=== PATIENT | male | born 1955 | race Caucasian/White ===

== ENCOUNTER 2020-07-07 11:12 | Outpatient (CLI) | payer MEDICARE, SELFPAY ==
[2020-07-07 11:47] LABS: Basophils # 0.1 10^3/uL (0.0-0.1); Basophils % 0.7 %; Eosinophils # 0.1 10^3/uL (0.0-0.8); Eosinophils % 1.6 %; Hematocrit 43.7 % (42.0-52.0); Hemoglobin 14.8 g/dL (11.7-16.6); Lymphocytes # 1.4 10^3/uL (0.8-4.8); Lymphocytes % 18.3 %; Mean Corpuscular HGB Conc 33.9 g/dL (30.0-36.0); Mean Corpuscular Hemoglobin 31.2 pg (28.0-34.0); Mean Corpuscular Volume 92.2 fL (80-94); Monocytes # 0.8 10^3/uL (0.2-0.9); Monocytes % 9.9 %; Neutrophils # 5.31 10^3/uL (1.8-7.7); Neutrophils % 69.2 %; Nucleated Red Blood Cells % 0 %; Platelet Count 230 10^3/cmm (130-400); Red Blood Count 4.74 10^6/uL (4.1-5.3); Red Cell Distribution Width 12.8 % (12.1-15.1); White Blood Count 7.7 10^3/uL (4.0-10.0)
[2020-07-08 16:28] LABS: Alternaria Alternata (M6) Ige <0.10 kU/L; Alternaria Class 0; Bermuda Class 1; Bermuda Grass (G2) Ige 0.35 kU/L; Cat Dander (E1) Ige <0.10 kU/L; Cat Dander Class 0; Common Ragweed (Short) (W1) Ig 0.13 kU/L; D. Farinae Class 0; Dermatophagoides Class 0; Dermatophagoides Farinae (D2) <0.10 kU/L; Dermatophagoides Pteronyssinus <0.10 kU/L; Dog Dander (E5) Ige <0.10 kU/L; Dog Dander Class 0; Elm (T8) Ige <0.10 kU/L; Elm Class 0; English Plantain (W9) Ige <0.10 kU/L; English Plantain Class 0; House Dust (Greer) (H1) Ige <0.10 kU/L; House Dust (Hollister- Stier) <0.10 kU/L; House Dust Class 0; Immunoglobulin E 26 kU/L (<OR=114); Johnson Grass (G10) Ige <0.10 kU/L; Johnson Grass Cl 0; June Grass Class 0/1; June Grass(Kentucky Blue) (G8) 0.13 kU/L; Lamb'S Quarters (Goose Foot) 0.13 kU/L; Lamb'S Quarters Class 0/1; Maple (Box Elder) (T1) Ige <0.10 kU/L; Maple Class 0; Meadow Fescue (G4) Ige <0.10 kU/L; Meadow Fescue Class 0; Mucor Racemosus Class 0; Oak (T7) Ige <0.10 kU/L; Oak Class 0; Orchard Grass (Cocksfoot) (G3) <0.10 kU/L; Penicillium Class 0; Penicillium Notatum (M1) Ige <0.10 kU/L; Perennial Rye Grass (G5) Ige <0.10 kU/L; Perennial Rye Grass Class 0; Ragweeed Class 0/1; Rough Marsh Elder (W16) Ige <0.10 kU/L; Rough Marsh Elder Class 0; Sweet Vernal Class 0; Sweet Vernal Grass (G1) Ige <0.10 kU/L; Timothy Grass (G6) Ige <0.10 kU/L; Timothy Grass Class 0
[2020-07-11 17:02] LABS: Immunoglobulin E 25 kU/L (<OR=114)
[2020-07-12 16:43] LABS: Aspergillus Fumigatus, Igg Ab, 28.3 mg/L (<=102)
== END 2020-07-07 11:13 | disposition home or self-care (01) ==
LOC: LAB 11:14
PROVIDERS: PCP Family Medicine; Visit Provider Internal Medicine Critical Care Medicine
DX: R06.02 Shortness of breath (principal)
CPT/HCPCS: 36415; 82785; 85025; 86003

== ENCOUNTER → 2020-08-24 10:44 | Outpatient (BNVA) | payer MEDICARE, SELFPAY | PROVIDERS: PCP Family Medicine; Visit Provider Internal Medicine Critical Care Medicine | DX: R06.02 Shortness of breath (principal); Z20.822 Contact with and (suspected) exposure to COVID-19 | CPT/HCPCS: 87635 ==

== ENCOUNTER 2020-08-30 08:59 | Outpatient (CLI) | payer MEDICARE, SELFPAY ==
[2020-08-30 09:45] VITALS: BMI 32.8
--- NOTE | 2020-08-30 10:28 | NMCV_ITS ---
NM kristin perf SPECT r/s* [id number] Kj Huddleston Age: 65 Gender: M : 1955 Exam Date: 08/30/2020 10:40 Ordering Phys: Garo Delgado MD Technologist: PRATIBHA Nunez Exam Location: [facility] Indications: SOB STRESS TEST Please see separate stress test report in [facility] for full findings IMAGE PROTOCOL Rest/Stress 1 Lexiscan Day Radiopharmaceutical Dose (mCi) Administration Site Administered by Rest: Tc-99m 10.7 IV PRATIBHA Mansfield Sestamibi Stress:Tc-99m 32.9 IV PRATIBHA Mansfield Sestamibi Rest: 30-Aug-2020 60 Discovery 630 Stress: 30-Aug-2020 30 Discovery 630 0.4mg Lexiscan. Images obtained in supine and prone position. SPECT RESULTS Technical Quality: Good Raw Data Analysis: Normal Image Corrections: No attenuation or motion correction applied Summed Stress Score: 4 Summed Rest Score: 3 Summed Difference Score: 1 PERFUSION FINDINGS There is a small in size, mostly fixed perfusion defect in the anteroseptal wall. 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 IMPRESSIONS 1. There is a small in size, mostly fixed perfusion defect in the anteroseptal wall. This likely represents prior small infarct with small area of reinaldo- infarct ischemia 2. LV systolic function is normal Ryan Ferrer MD (Electronically Signed) Final Date: 01 September 2020 10:27 S
--- NOTE | 2020-08-30 10:28 | ECG_ITS ---
[facility] Test Date: 2020-08-30 Pat Name: Kj Huddleston Department: Room: Gender: Male National Sales Representative: : 1955 Requested By: [employer] Sandy Order Number: [id number] Alcaraz MD: Ryan Ferrer M.D. Interpretive Statements NAME OF STUDY: LEXISCAN SESTAMIBI STRESS TEST INDICATION: [Shortness of Breath] Procedure: At the baseline, the blood pressure was 118/73 mmHg with a heart rate of 59 bpm. The electrocardiogram showed normal sinus rhythm, normal axis with normal ST and T's. The Lexiscan was infused over a period of 20 seconds. A total of 0.4 mg of Lexiscan was infused. The stress phase was continued for a total of 5 minutes. Heart rate was at the end of stress phase was 85 bpm and a blood pressure of 114/69 mmHg. The EKG at the peak infusion revealed since normal sinus rhythm with no significant ST-T wave changes. Sestamibi was injected 20 seconds after the Lexiscan infusion. Blood pressure at the end of recovery phase was 105/69 mmHg with a heart rate of 84 bpm. Conclusion: 1. Normal EKG response to Lexiscan infusion 2. No Lexiscan induced chest pain or cardiac arrhythmia. 3. Normal blood pressure and heart rate response. 4. Sestamibi/sestamibi perfusion scan pending; see separate report. Electronically Signed On 09-10-2020 12:16:14 CDT by Ryan Ferrer M.D. [email or web address]
[2020-08-30 11:35] VITALS: BP 105/69; PULSE 80
[2020-08-30] MEDS: regadenoson 0.4 Mg/5 ml Syringe IVP (11:35)
--- NOTE | 2020-08-30 13:40 | PFTS_ITS ---
Date of Study:08/30/20 Date of Dictation: 08/30/2020 MECHANICS: Postbronchodilator forced vital capacity (FVC) is normal. Postbronchodilator forced expiratory volume in one second (FEV1) is normal. FEV1/FVC is normal. There is no significant bronchodilator response. FLOW VOLUME LOOP: Sloping of end expiratory limb suggestive of small airway obstruction LUNG VOLUMES: Total lung capacity (TLC) is normal. Residual volume (RV) is normal. DIFFUSING CAPACITY FOR CARBON MONOXIDE: Normal . INTERPRETATION: The pulmonary function tests are normal. MTDD
--- NOTE | 2020-08-30 15:00 | USCV_ITS ---
Kj Huddleston Age: 65 Gender: M : 1955 Exam Date: 08/30/2020 09:20 Ordering Phys: Garo Delgado MD Technologist: Nancy Dudley [place]am [place] [facility] [place] [facility] [place] Indication: SHORTNESS OF BREATH BP: / HR: 57 Rhythm: Sinus Technical Quality: Adequate MEASUREMENTS (Male / Female) Normal Values 2D ECHO LV Diastolic Diameter PLAX 4.4 cm 4.2 - 5.9 / 3.9 - 5.3 cm LV Systolic Diameter PLAX 2.5 cm LV Chamber Size 3.1 cm IVS Diastolic Thickness 1.0 cm 0.6 - 1.0 / 0.6 - 0.9 cm IVS Systolic Thickness 1.3 cm LVPW Diastolic Thickness 1.9 cm 0.6 - 1.0 / 0.6 - 0.9 cm LVPW Systolic Thickness 2.0 cm RV Chamber Size 3.1 cm LVOT Diameter 2.0 cm LV Ejection Fraction 2D Teich 74.2 % LV Ejection Fraction MOD 2C 53.4 % LV Ejection Fraction 2C AL 54.6 % LA Diameter 3.3 cm LA Width 3.3 cm LA Height 5.0 cm RA Width 2.6 cm RA Height 4.6 cm M-MODE LV Diastolic Diameter MM 4.6 cm 4.2 - 5.9 / 3.9 - 5.3 cm LV Systolic Diameter MM 3.1 cm LV Ejection Fraction MM Teich 62.1 % IVS Diastolic Thickness MM 0.7 cm 0.6 - 1.0 / 0.6 - 0.9 cm IVS Systolic Thickness MM 1.2 cm LVPW Diastolic Thickness MM 0.8 cm 0.6 - 1.0 / 0.6 - 0.9 cm LVPW Systolic Thickness MM 1.2 cm Aortic Annulus Diameter 3.0 cm LA Ao Ratio MM 1.3 MV E Point Septal Separation 0.4 cm DOPPLER AV Peak Velocity 190.7 cm/s LVOT Peak Velocity 114.0 cm/s AV Area Cont Eq vti 2.2 cm squared AV Area Cont Eq pk 1.9 cm squared MV Area PHT 2.7 cm squared Mitral E to A Ratio 1.0 MV E' Velocity 42.5 cm/s Mitral E to MV E' Ratio 7.6 Mitral E to LV E' Lateral Ratio 6.9 Mitral E to LV E' Septal Ratio 8.4 TR Peak Velocity 286.0 cm/s TR Peak Gradient 32.7 mmHg TV Peak E Velocity 75.0 cm/s Right Atrial Pressure 3.0 mmHg Pulmonary Artery Systolic Pressu 35.7 mmHg PV Peak Velocity 86.0 cm/s RV Acceleration Time 0.2 s RV Ejection Time 0.4 s RV AcT/ET 0.6 FINDINGS Left Ventricle Normal left ventricular size. LV systolic function is normal with EF of 55-60%. No regional wall motion abnormalities. Normal diastolic filling pattern. Right Ventricle The right ventricle is normal in size and function. Right Atrium The right atrium is normal in size. Left Atrium The left atrium is normal in size. Mitral Valve Structurally normal mitral valve without significant stenosis or prolapse. There is no mitral regurgitation. Aortic Valve Structurally normal aortic valve without significant sclerosis or stenosis. There is no aortic regurgitation. Tricuspid Valve Structurally normal tricuspid valve without significant stenosis. Trace tricuspid regurgitation. RVSP is 35-40mmHg. This is consistent with mild pulmonary hypertension Pulmonic Valve Structurally normal pulmonic valve without significant stenosis. There is no pulmonic regurgitation. Pericardium Normal pericardium without effusion. Aorta Normal ascending aorta dimension. CONCLUSIONS LV systolic function is normal with EF of 55-60% Diastolic function is normal No significant valvular heart disease Mild pulmonary hypertension No comparison studies are available Ryan Ferrer MD (Electronically Signed) Final Date: 08 Sep 2020 10:00 S
== END 2020-08-30 09:00 | disposition home or self-care (01) ==
LOC: RAD 09:10 → CDL 10:27
PROVIDERS: PCP Family Medicine; Visit Provider Internal Medicine Critical Care Medicine
DX: R06.02 Shortness of breath (principal)
CPT/HCPCS: 78452; 93017; 93306; 94060; 94726; 94729; A9500; J2785

== ENCOUNTER → 2021-02-01 14:58 | Outpatient (BNVA) | payer MEDICARE, SELFPAY | PROVIDERS: PCP Family Medicine; Visit Provider Urology | DX: N43.3 Hydrocele, unspecified (principal); N52.9 Male erectile dysfunction, unspecified; N50.82 Scrotal pain | CPT/HCPCS: 81003 ==

== ENCOUNTER → 2022-03-06 09:14 | Outpatient (BNVA) | payer MEDICARE, SELFPAY | PROVIDERS: PCP Family Medicine; Visit Provider Otolaryngology | DX: H91.93 Unspecified hearing loss, bilateral (principal) | CPT/HCPCS: 99203 ==

== ENCOUNTER → 2022-03-13 11:12 | Outpatient (BNVA) | payer MEDICARE, SELFPAY | PROVIDERS: PCP Family Medicine; Visit Provider Otolaryngology | DX: H65.22 Chronic serous otitis media, left ear (principal); H90.72 Mixed conductive and sensorineural hearing loss, unilateral, left ear, with unrestricted hearing on the contralateral side | CPT/HCPCS: 69433; 99213 ==

== ENCOUNTER → 2022-03-20 10:09 | Outpatient (BNVA) | payer MEDICARE, SELFPAY | PROVIDERS: PCP Family Medicine; Visit Provider Otolaryngology | DX: H65.22 Chronic serous otitis media, left ear (principal); Z96.22 Myringotomy tube(s) status | CPT/HCPCS: 99024 ==

== ENCOUNTER → 2022-06-20 10:15 | Outpatient (BNVA) | payer MEDICARE, SELFPAY | PROVIDERS: PCP Family Medicine; Visit Provider Otolaryngology | DX: H69.83 Other specified disorders of Eustachian tube, bilateral (principal); Z96.22 Myringotomy tube(s) status | CPT/HCPCS: 99212 ==

== ENCOUNTER → 2022-09-17 09:19 | Outpatient (BNVA) | payer MEDICARE, SELFPAY | PROVIDERS: PCP Family Medicine; Visit Provider Otolaryngology | DX: H90.72 Mixed conductive and sensorineural hearing loss, unilateral, left ear, with unrestricted hearing on the contralateral side (principal); H69.83 Other specified disorders of Eustachian tube, bilateral | CPT/HCPCS: 99213 ==

== ENCOUNTER → 2022-12-21 10:56 | Outpatient (BNVA) | payer MEDICARE, SELFPAY | PROVIDERS: PCP Family Medicine; Visit Provider Otolaryngology | DX: H90.72 Mixed conductive and sensorineural hearing loss, unilateral, left ear, with unrestricted hearing on the contralateral side (principal); H69.83 Other specified disorders of Eustachian tube, bilateral; Z96.22 Myringotomy tube(s) status | CPT/HCPCS: 99213 ==

== ENCOUNTER → 2023-06-11 09:34 | Outpatient (BNVA) | payer MEDICARE, SELFPAY | PROVIDERS: PCP Family Medicine; Visit Provider Otolaryngology | DX: H90.A32 Mixed conductive and sensorineural hearing loss, unilateral, left ear with restricted hearing on the contralateral side (principal); H69.83 Other specified disorders of Eustachian tube, bilateral; H72.01 Central perforation of tympanic membrane, right ear; Z96.22 Myringotomy tube(s) status | CPT/HCPCS: 99213 ==

== ENCOUNTER → 2023-06-19 10:12 | Outpatient (BNVA) | payer MEDICARE, SELFPAY | PROVIDERS: PCP Family Medicine; Visit Provider Otolaryngology | DX: H90.6 Mixed conductive and sensorineural hearing loss, bilateral (principal); H72.01 Central perforation of tympanic membrane, right ear; H69.83 Other specified disorders of Eustachian tube, bilateral | CPT/HCPCS: 99214 ==

== ENCOUNTER → 2023-09-09 10:00 | Outpatient (BNVA) | payer MEDICARE, SELFPAY | PROVIDERS: PCP Family Medicine; Visit Provider Otolaryngology | DX: H72.01 Central perforation of tympanic membrane, right ear (principal); H69.83 Other specified disorders of Eustachian tube, bilateral; H90.6 Mixed conductive and sensorineural hearing loss, bilateral | CPT/HCPCS: 99213 ==

== ENCOUNTER → 2023-11-12 13:29 | Outpatient (BNVA) | payer MEDICARE, SELFPAY | PROVIDERS: PCP Family Medicine; Visit Provider Nurse Practitioner Family | DX: L57.0 Actinic keratosis (principal); D48.5 Neoplasm of uncertain behavior of skin; L82.1 Other seborrheic keratosis; D22.5 Melanocytic nevi of trunk; L57.8 Other skin changes due to chronic exposure to nonionizing radiation; L81.4 Other melanin hyperpigmentation | CPT/HCPCS: 17004; 69100; 99203 ==

== ENCOUNTER → 2024-02-13 09:29 | Outpatient (BNVA) | payer MEDICARE, SELFPAY | PROVIDERS: PCP Family Medicine; Visit Provider Internal Medicine | DX: N52.9 Male erectile dysfunction, unspecified (principal); E55.9 Vitamin D deficiency, unspecified; R09.82 Postnasal drip; T78.40XA Allergy, unspecified, initial encounter; R06.02 Shortness of breath; J45.909 Unspecified asthma, uncomplicated; X58.XXXA Exposure to other specified factors, initial encounter | CPT/HCPCS: 99204 ==

== ENCOUNTER 2024-05-14 09:22 | Outpatient (CLI) | payer MEDICARE, SELFPAY ==
[2024-05-14 10:48] LABS: Testosterone Total 327.8 ng/dL (193-740)
[2024-05-14 11:51] LABS: 25 Hydroxy Vitamin D 43 ng/mL (30-100); Follicle Stimulating Hormone 12.6 mIU/mL (1.5-12.4); Luteinizing Hormone 5.1 mIU/mL (1.7-8.6); Prolactin 10.63 ng/mL (4.0-15.2)
== END 2024-05-14 09:23 | disposition home or self-care (01) ==
LOC: LAB 09:25
PROVIDERS: Internal Medicine; PCP Family Medicine; Visit Provider Family Medicine
DX: N52.9 Male erectile dysfunction, unspecified (principal); E55.9 Vitamin D deficiency, unspecified
CPT/HCPCS: 17004; 36415; 82306; 83001; 83002; 84146; 84403; 99213

== ENCOUNTER → 2024-06-08 11:53 | Outpatient (BNVA) | payer MEDICARE, SELFPAY | PROVIDERS: PCP Family Medicine; Visit Provider Internal Medicine | DX: N52.9 Male erectile dysfunction, unspecified (principal); R09.82 Postnasal drip; T78.40XA Allergy, unspecified, initial encounter; R06.02 Shortness of breath; J45.909 Unspecified asthma, uncomplicated; X58.XXXA Exposure to other specified factors, initial encounter | CPT/HCPCS: 99214 ==

== ENCOUNTER → 2024-09-11 10:48 | Outpatient (BNVA) | payer MEDICARE, SELFPAY | PROVIDERS: PCP Family Medicine; Visit Provider Nurse Practitioner Family | DX: L82.1 Other seborrheic keratosis (principal); D22.5 Melanocytic nevi of trunk; L81.4 Other melanin hyperpigmentation; L57.8 Other skin changes due to chronic exposure to nonionizing radiation; L57.0 Actinic keratosis | CPT/HCPCS: 17000; 99213 ==

== ENCOUNTER → 2024-12-09 10:16 | Outpatient (BNVA) | payer MEDICARE, SELFPAY | PROVIDERS: PCP Family Medicine; Visit Provider Internal Medicine | DX: N52.9 Male erectile dysfunction, unspecified (principal); J45.909 Unspecified asthma, uncomplicated; K21.9 Gastro-esophageal reflux disease without esophagitis | CPT/HCPCS: 99214 ==

== ENCOUNTER → 2024-12-11 10:30 | Outpatient (BNVA) | payer MEDICARE, SELFPAY | PROVIDERS: PCP Family Medicine; Visit Provider Student in an Organized Health Care Education/Training Program | DX: R12 Heartburn (principal); Z12.11 Encounter for screening for malignant neoplasm of colon | CPT/HCPCS: 99204 ==

== ENCOUNTER 2024-12-15 09:24 | Day surgery (SDC) | payer MEDICARE, SELFPAY ==
[2024-12-15 09:47] VITALS: BP 125/87; PULSE 62; RESP 18; TEMP 36.2; O2SAT 99; BMI 32.5
--- NOTE | 2024-12-15 10:41 | ANES.PREANE2 ---
Pre-Anesthetic Assessment Height/Weight: Height 1.7 m Weight 94.347 kg Temp Pulse Resp BP Pulse Ox O2 Del Method 97.2 F L 62 18 125/87 99 Room Air 12/15/24 09:47 12/15/24 09:47 12/15/24 09:47 12/15/24 09:47 12/15/24 09:47 12/15/24 09:47 Preop Diagnosis: screening, gerd Operation Date: 12/15/24 10:30 Proposed Procedures p EGD EGD with Biopsy [id number] G0105 R12 Z12.11(Not Applicable) - Eric Marcelo MD s Colonoscopy(Not Applicable) - Eric Marcelo MD Familial anesthetic complications: none Was Beta Barb taken within 24 hours: N/A Was Clonidine taken within 24 hours: N/A Last intake: Intake Last Liquid Date 12/14/24 Last Liquid Time 21:30 Last Solid Date 12/13/24 Last Solid Time 21:30 Social No alcohol and No tobacco (quit smoking years ago per pt ) Exam alert, oriented x 3 and clear to auscultation bilaterally Airway Mallampati: Class II Dentition: false History/ROS No significant history except as noted Pulmonary Chronic Obstructive Pulmonary Disease (rarely needs to use inhaler ) CV/HEM Hypertension None reported Hepatic None reported GI Gastroesophageal Reflux Disease (no GERD this morning) Metabolic Hyper[place] [facility] [place] None reported Neuropsych None reported Anesthetic Plan ASA status: 3 Anesthesia: Anesthesia Evaluation and MAC Risk of > 500 ml blood loss (7ml/kg in children): Yes, adequate IV access and fluids planned Medications/Allergies Home Medications ?Medication ?Instructions ?Recorded ?Confirmed ?Last Taken ?Type ascorbic acid (vitamin C) 1,000 mg 1 g PO DAILY 07/07/20 12/14/24 12/14/24 History tablet atorvastatin 20 mg tablet 20 mg PO DAILY 07/07/20 12/14/24 12/14/24 History esomeprazole magnesium 40 mg 40 mg PO DAILY 07/07/20 12/14/24 12/13/24 History capsule,delayed release (Nexium) hydrochlorothiazide 25 mg tablet 25 mg PO DAILY 07/07/20 12/14/24 12/14/24 History lactobacillus combination no.9 4 4,000 mmu cells PO DAILY 07/07/20 12/14/24 12/14/24 History billion cell capsule (Adult 50 Plus Probiotic) montelukast 10 mg tablet 10 mg PO DAILY 07/07/20 12/14/24 12/13/24 History (Singulair) multivitamin 1 tab PO DAILY 07/07/20 12/14/24 12/14/24 History naproxen sodium 220 mg capsule 220 mg PO BID PRN Pain 07/07/20 12/14/24 12/13/24 History (Aleve) valsartan 160 mg tablet 160 mg PO DAILY 07/07/20 12/14/24 12/14/24 History diltiazem HCl 240 mg 240 mg PO DAILY 11/30/20 12/14/24 Unknown History capsule,extended release 24 hr sildenafil 100 mg tablet 100 mg PO DAILY PRN Sexual Activity 11/30/20 12/14/24 Unknown History biotin 10,000 mcg capsule 10,000 mcg PO DAILY 02/01/21 12/14/24 Unknown History garlic 1,000 mg capsule 1,000 mg PO DAILY 02/01/21 12/14/24 12/14/24 History pantoprazole 40 mg tablet,delayed 40 mg PO BID 30 days #60 tabs 12/11/24 12/14/24 Unknown Rx release sucralfate 100 mg/mL oral 10 ml PO BID 30 days #600 mL 12/11/24 12/14/24 Unknown Rx suspension ofloxacin 0.3 % eye drops 2 drp otic (ear) DAILY PRN Tubes 12/14/24 12/14/24 12/14/24 History in tympanic membranes Allergies Allergy/AdvReac Type Severity Reaction Status Date / Time No Known Allergies Allergy Verified 12/14/24 09:11 Current Medications Generic Name Dose Route Start Last Admin Trade Name Freq PRN Reason Stop Dose Admin Sodium Chloride 1,000 mls @ 15 mls/hr 12/15/24 09:32 12/15/24 09:52 Sodium Chloride 0.9% IV 12/16/24 09:31 15 mls/hr .Q24H PRN Administration COLONOSCOPY FLUIDS PFSH Anesthesia Medical History (Updated 12/11/24 @ 10:53 by Eric Marcelo MD) COVID-19 Chronic obstructive pulmonary disease Broken back Hyperlipidemia HTN (hypertension) Anxiety GERD (gastroesophageal reflux disease) SOB (shortness of breath) Surgical History History of shoulder surgery History of hernia surgery History of placement of ear tubes Hx of tonsillectomy History of ankle surgery Family History Father , AT AGE 80 Cancer Lung disease Chronic kidney disease (CKD) Mother Healthy adult Social History Smoking and tobacco/nicotine status: unknown if used tobacco/nicotine Quit status (tobacco/nicotine): has quit using Year quit tobacco: 1979 Former quit date comment: 2 PPD x 15 Years Alcohol intake: current Alcohol intake frequency: holidays/special occasions only Substance/Drug Use: never Marital status: / Current occupational status: retired Do you think of yourself as: Straight/Heterosexual Data Anesthesia Cardiac Studies: Echocardiogram Ultrasound 08/30/20 Sestamibi Stress Test (Cardiology) 08/30/20
--- NOTE | 2024-12-15 11:20 | W.PM.OPSUD ---
Surgery/Procedure H&P Update DATE OF PROCEDURE: December 15, 2024 DATE H&P PERFORMED: 12/11/24 H&P UPDATE INFORMATION: I have reviewed H&P completed within last 30 days, I have examined patient prior to procedure and No changes to prior documentation PREOP DIAGNOSIS: screening, gerd PLANNED PROCEDURE: Operation Date: 12/15/24 10:30 Proposed Procedures p EGD EGD with Biopsy [id number] G0105 R12 Z12.11(Not Applicable) - Eric Marcelo MD s Colonoscopy(Not Applicable) - Eric Marcelo MD
--- NOTE | 2024-12-15 11:43 | PC.NURSE ---
cecum time 1143
[2024-12-15 11:54] VITALS: BP 97/63; PULSE 62; RESP 18; TEMP 36.4; O2SAT 94
[2024-12-15 12:07] VITALS: BP 110/58; PULSE 70; RESP 16; O2SAT 96
[2024-12-15 12:17] VITALS: BP 92/66; PULSE 59; RESP 16; O2SAT 97
--- NOTE | 2024-12-15 12:18 | ANE.PACU2 ---
Inpatient post-anesthesia follow up: Airway intact: Yes Vital signs: Temperature 97.6 F Pulse Rate 59 Respiratory Rate 16 Blood Pressure 92/66 Pulse Oximetry 97 Oxygen Delivery Me thod Room Air Oxygen Flow Rate Fraction of Inspir ed Oxygen Hydration adequate: Yes Nausea and vomiting: No Pain level: 1 Mental status: Baseline
== END 2024-12-15 12:18 | disposition home or self-care (01) ==
PROVIDERS: PCP Family Medicine; Visit Provider Student in an Organized Health Care Education/Training Program
PROC: 0DJ08ZZ Inspection of Upper Intestinal Tract, Via Natural or Artificial Opening Endoscopic (ICD-10-PCS; principal; 2024-12-15 10:30)
PROC: 0DJD8ZZ Inspection of Lower Intestinal Tract, Via Natural or Artificial Opening Endoscopic (ICD-10-PCS; CPT 45378; 2024-12-15 10:30)
DX: Z12.11 Encounter for screening for malignant neoplasm of colon (principal); K57.30 Diverticulosis of large intestine without perforation or abscess without bleeding; K21.9 Gastro-esophageal reflux disease without esophagitis; K29.60 Other gastritis without bleeding; J44.9 Chronic obstructive pulmonary disease, unspecified; E78.5 Hyperlipidemia, unspecified; I10 Essential (primary) hypertension; F41.9 Anxiety disorder, unspecified; Z87.891 Personal history of nicotine dependence
CPT/HCPCS: 43239; 88305; G0121; J2704; J7030; J9999

== ENCOUNTER → 2024-12-28 11:10 | Outpatient (BNVA) | payer MEDICARE, SELFPAY | PROVIDERS: PCP Family Medicine; Visit Provider Student in an Organized Health Care Education/Training Program | DX: Z09 Encounter for follow-up examination after completed treatment for conditions other than malignant neoplasm (principal) | CPT/HCPCS: 99213 ==

== ENCOUNTER → 2025-04-21 07:42 | Outpatient (BNVA) | payer MEDICARE, SELFPAY | PROVIDERS: PCP Family Medicine; Visit Provider Nurse Practitioner Family | DX: L82.1 Other seborrheic keratosis (principal); D22.5 Melanocytic nevi of trunk; L81.4 Other melanin hyperpigmentation; L57.8 Other skin changes due to chronic exposure to nonionizing radiation; L57.0 Actinic keratosis | CPT/HCPCS: 17000; 99213 ==